=== PATIENT | male | born 1950 | race Two or more races ===

== ENCOUNTER 2020-04-28 09:47 | Outpatient (CLI) | payer OTHER | END 2020-04-28 16:42 | disposition home or self-care (01) | LOC: OFIC 805 09:47 | PROVIDERS: ATTEND Otolaryngology | DX: H90.3 Sensorineural hearing loss, bilateral (principal); H61.23 Impacted cerumen, bilateral ==

== ENCOUNTER 2020-05-28 10:47 | Outpatient (CLI) | payer OTHER | END 2020-05-28 10:55 | disposition home or self-care (01) | LOC: SONOGRAMA 10:47 | PROVIDERS: ATTEND Otolaryngology | DX: R22.1 Localized swelling, mass and lump, neck (principal); R22.2 Localized swelling, mass and lump, trunk ==

== ENCOUNTER 2020-06-03 09:51 | Outpatient (CLI) | payer OTHER | END 2020-06-03 10:59 | disposition home or self-care (01) | LOC: OFIC 805 09:51 | PROVIDERS: ATTEND Otolaryngology | DX: C76.0 Malignant neoplasm of head, face and neck (principal); C77.9 Secondary and unspecified malignant neoplasm of lymph node, unspecified ==

== ENCOUNTER → 2020-06-03 11:57 | Outpatient (CLI) | payer OTHER | END | disposition home or self-care (01) | LOC: LAB 11:57 | PROVIDERS: ATTEND Radiology Diagnostic Radiology | DX: N20.0 Calculus of kidney (principal) ==

== ENCOUNTER 2020-06-04 07:27 | Outpatient (CLI) | payer OTHER | END 2020-06-04 07:39 | disposition home or self-care (01) | LOC: TOM 07:27 | PROVIDERS: ATTEND Otolaryngology | DX: C76.0 Malignant neoplasm of head, face and neck (principal); C77.0 Secondary and unspecified malignant neoplasm of lymph nodes of head, face and neck ==

== ENCOUNTER 2024-03-28 13:38 | Emergency (ER) | payer OTHER ==
[~2024-03-28] VITALS: Ht 177.8 cm; Wt 86.2 kg
== END 2024-03-28 15:02 | disposition home or self-care (01) ==
LOC: ER 13:40
DX: H66.91 Otitis media, unspecified, right ear (principal)